=== PATIENT | female | born 1945 | race Caucasian/White ===

== ENCOUNTER 2019-01-13 07:37 | Emergency (ER) | payer MEDICARE, OTHER ==
[~2019-01-13] VITALS: Ht 154.9 cm; Wt 59.0 kg
[2019-01-13 07:41] VITALS: BP 173/61; PULSE 86; RESP 16; Ht 154.9 cm; Wt 59.0 kg
[2019-01-13] MEDS ORDERED: ACET325T33 PO (09:34)
--- NOTE | 2019-01-13 09:50 | ERD ---
ER Documentation Chief Complaint Chief Complaint pt is bib family with c/o bilatt hand and leg pain x 2 wks HPI 73-year-old female presenting with bilateral leg and hand pain times 2 weeks. Patient states she has a cramping type sensation. She recently took antibiotics for a urinary tract infection and developed a spasms. She denies any chest pain or shortness of breath. Denies any weakness. Denies other medical problems. A llergic to penicillin. Surgical history denies. Social history denies ROS All systems reviewed and are negative except as per history of present illness. Medications Home Meds Active Scripts Acetaminophen* (Tylenol*) 325 Mg Tablet, 2 TAB PO Q6 PRN for PAIN AND OR ELEVATED TEMP, #20 TAB Prov:RAMON VILLALOBOS PA-C 01/13/19 Allergies Allergies: Coded Allergies: Penicillins (Verified Allergy, Unknown, 01/13/19) PMhx/Soc Medical and Surgical Hx: pt denies Surgical Hx Hx Cardiac Disorders: Yes (HTN) Hx Alcohol Use: No Hx Substance Use: No Hx Tobacco Use: No Smoking Status: Never smoker FmHx Family History: No diabetes, No coronary disease, No other Physical Exam Vitals Vital Signs Date Temp Pulse Resp B/P (MAP) Pulse Ox O2 O2 Flow FiO2 Time Delivery Rate 01/13/19 98.3 86 16 173/61 98 07:41 (98) Physical Exam GENERAL: The patient is well-appearing, well-nourished, in no acute distress CHEST: Clear to auscultation bilaterally. There are no rales, wheezes or rhonchi. HEART: Regular rate and rhythm. No murmurs, clicks, rubs or gallops. EXTREMITIES: Equal pulses bilaterally. There is no peripheral clubbing, cyanosis or edema. No focal swelling or erythema. Full range of motion. Grossly neurovascularly intact. NEUROLOGIC: Alert and oriented. Cranial nerves II through XII intact. Motor strength in all 4 extremities with 5 out of 5 strength. Sensation grossly intact. Normal speech and gait. SKIN: There is no apparent rash or petechiae. The skin is warm and dry. Result Diagram: 01/13/19 0820 01/13/19 0820 Results 24 hrs Laboratory Tests Test 01/13/19 08:20 White Blood Count 8.3 10^3/ul Red Blood Count 3.41 10^6/ul Hemoglobin 10.4 g/dl Hematocrit 31.6 % Mean Corpuscular Volume 92.7 fl Mean Corpuscular Hemoglobin 30.5 pg Mean Corpuscular Hemoglobin Concent 32.9 g/dl Red Cell Distribution Width 12.1 % Platelet Count 299 10^3/UL Mean Platelet Volume 8.3 fl Immature Granulocytes % 0.400 % Neutrophils % 51.3 % Lymphocytes % 38.2 % Monocytes % 7.0 % Eosinophils % 2.7 % Basophils % 0.4 % Nucleated Red Blood Cells % 0.0 /100WBC Immature Granulocytes # 0.030 10^3/ul Neutrophils # 4.3 10^3/ul Lymphocytes # 3.2 10^3/ul Monocytes # 0.6 10^3/ul Eosinophils # 0.2 10^3/ul Basophils # 0.0 10^3/ul Nucleated Red Blood Cells # 0.0 10^3/ul Urine Color YELLOW Urine Clarity CLEAR Urine pH 8.0 Urine Specific Spencer 1.004 Urine Ketones NEGATIVE mg/dL Urine Nitrite NEGATIVE mg/dL Urine Bilirubin NEGATIVE mg/dL Urine Urobilinogen NEGATIVE mg/dL Urine Leukocyte Esterase TRACE Eldon/ul Urine Microscopic RBC 0 /HPF Urine Microscopic WBC 6 /HPF Urine Hemoglobin NEGATIVE mg/dL Urine Glucose NEGATIVE mg/dL Urine Total Protein NEGATIVE mg/dl Sodium Level 130 mmol/L Potassium Level 5.0 mmol/L Chloride Level 91 mmol/L Carbon Dioxide Level 27 mmol/L Anion Gap 12 Blood Urea Nitrogen 21 mg/dl Creatinine 1.30 mg/dl Est Glomerular Filtrat Rate mL/min mL/min Glucose Level 103 mg/dl Calcium Level 9.0 mg/dl Total Bilirubin 0.3 mg/dl Direct Bilirubin 0.00 mg/dl Indirect Bilirubin 0.3 mg/dl Aspartate Amino Transf (AST/SGOT) 29 IU/L Alanine Aminotransferase (ALT/SGPT) 21 IU/L Alkaline Phosphatase 121 IU/L Total Protein 7.9 g/dl Albumin 4.2 g/dl Globulin 3.70 g/dl Albumin/Globulin Ratio 1.13 Procedures/MDM ER course: Blood work was collected and electrolytes are within normal ranges. This case was discussed with Dr. Charles prior to discharge. MDM: 73-year-old female presenting with diffuse Muscle spasms. I have low suspicion for electrolyte imbalance. I have low suspicion for possible TIA or stroke. There is no focal exam noted. I do not feel that further imaging was indicated. Patient has lucid concern for cardiac or pulmonary emergency. Patient is discharged stricter precautions and recommended to follow-up with primary care. All questions answered at discharge Departure Diagnosis: Primary Impression: Cramp and spasm Condition: Stable Patient Instructions: Muscle Spasm Referrals: [facility] YOU HAVE RECEIVED A MEDICAL SCREENING EXAM AND THE RESULTS INDICATE THAT YOU DO NOT HAVE A CONDITION THAT REQUIRES URGENT TREATMENT IN THE EMERGENCY DEPARTMENT. FURTHER EVALUATION AND TREATMENT OF YOUR CONDITION CAN WAIT UNTIL YOU ARE SEEN IN YOUR DOCTORS OFFICE WITHIN THE NEXT 1-2 DAYS. IT IS YOUR RESPONSIBILITY TO MAKE AN APPOINTMENT FOR [facility]. IF YOU HAVE A PRIMARY DOCTOR --you should call your primary doctor and schedule an appointment IF YOU DO NOT HAVE A PRIMARY DOCTOR YOU CAN CALL OUR PHYSICIAN REFERRAL HOTLINE AT IF YOU CAN NOT AFFORD TO SEE A PHYSICIAN YOU CAN CHOSE FROM THE FOLLOWING [facility] [address] [facility] [address] [facility] [address] [facility] [address] [facility] [address] [facility] [facility]. [address] Additional Instructions: FOLLOW UP WITH YOUR PRIMARY CARE PHYSICIAN TOMORROW.Return to this facility if you are not improving as expected. RAMON VILLALOBOS PA-C Jan 13, 2019 09:50
== END 2019-01-13 09:45 | disposition home or self-care (01) ==
LOC: FTE 07:37
DX: R25.2 Cramp and spasm (principal); I10 Essential (primary) hypertension
CPT/HCPCS: 80053; 81001; 85025; 99283